=== PATIENT | male | born 1985 | race African-American/Black ===

== ENCOUNTER 2017-05-26 13:01 | Emergency (ER) | payer MEDICAID ==
[~2017-05-26] VITALS: Ht 180.3 cm; Wt 104.0 kg
[2017-05-26] MEDS ORDERED: TETANUS, DIPHTHERIA, PERTUSSIS VAC/PF 0.5ML (>7YR OLD) IM ONE (13:45)
[2017-05-26] MEDS ORDERED: BACITRACIN ZINC OINT UDPKT TOP ONE (14:45)
[2017-05-26 15:00] VITALS: BP 129/71
== END 2017-05-26 15:10 | disposition home or self-care (01) ==
LOC: ER 13:01
DX: L03.019 Cellulitis of unspecified finger (principal); Y04.1XXA Assault by human bite, initial encounter; Y93.89 Activity, other specified; Y99.8 Other external cause status; Y92.89 Other specified places as the place of occurrence of the external cause
CPT/HCPCS: 73130; 90471; 90715; 99284

== ENCOUNTER 2017-08-20 01:20 | Emergency (ER) | payer MEDICAID ==
[~2017-08-20] VITALS: Ht 180.3 cm; Wt 109.0 kg
[2017-08-20] MEDS ORDERED: HYDROCODONE/ACETAMINOPHEN 10/325MG TABLET PO ONE (02:30)
[2017-08-20] MEDS ORDERED: AMOXICILLIN/POTASSIUM CLAVULANATE 875/125MG TAB PO ONE (02:30)
[2017-08-20] MEDS ORDERED: MECLIZINE 25MG TABLET PO SCH (02:45)
[2017-08-20 03:13] VITALS: BP 124/76
== END 2017-08-20 03:14 | disposition home or self-care (01) ==
LOC: ER 01:20
DX: H93.12 Tinnitus, left ear (principal)
CPT/HCPCS: 99284; Z7610; J8597

== ENCOUNTER 2017-12-05 00:55 | Emergency (ER) | payer MEDICAID ==
[~2017-12-05] VITALS: Ht 180.3 cm; Wt 114.0 kg
[2017-12-05 01:02] VITALS: BP 126/79
== END 2017-12-05 01:22 | disposition left against medical advice (07) ==
LOC: ER 00:55
DX: Z53.21 Procedure and treatment not carried out due to patient leaving prior to being seen by health care provider (principal)

== ENCOUNTER 2018-09-08 12:15 | Emergency (ER) | payer MEDICAID ==
[~2018-09-08] VITALS: Ht 180.3 cm; Wt 139.0 kg
[2018-09-08] MEDS ORDERED: DEXAMETHASONE 10 MG/ML VIAL IM ONE (12:45)
[2018-09-08 13:22] VITALS: BP 121/68
== END 2018-09-08 13:23 | disposition home or self-care (01) ==
LOC: ER 12:41
DX: S16.1XXA Strain of muscle, fascia and tendon at neck level, initial encounter (principal); S39.012A Strain of muscle, fascia and tendon of lower back, initial encounter; Z88.6 Allergy status to analgesic agent; V49.9XXA Car occupant (driver) (passenger) injured in unspecified traffic accident, initial encounter; Y93.89 Activity, other specified; Y92.488 Other paved roadways as the place of occurrence of the external cause
CPT/HCPCS: 96372; 99283; J1100

== ENCOUNTER 2018-10-23 07:23 | Emergency (ER) | payer MEDICAID ==
[~2018-10-23] VITALS: Ht 180.3 cm; Wt 107.0 kg
[2018-10-23] MEDS ORDERED: TRAMADOL 50MG TABLET PO ONE (10:00)
[2018-10-23 10:16] VITALS: BP 126/88
== END 2018-10-23 11:19 | disposition home or self-care (01) ==
LOC: ER 07:23
DX: R05 Cough (principal); R07.89 Other chest pain; Z88.6 Allergy status to analgesic agent
CPT/HCPCS: 71045; 99283

== ENCOUNTER 2019-08-19 09:26 | Emergency (ER) | payer MEDICAID ==
[~2019-08-19] VITALS: Ht 180.3 cm; Wt 109.0 kg
[2019-08-19 10:07] VITALS: BP 142/68
[2019-08-19] MEDS ORDERED: ACETAMINOPHEN 500MG TABLET PO ONE ×2 (11:00→13:00)
[2019-08-19] MEDS ORDERED: METHYLPREDNISOLONE SOD SUCC 125 MG/2 ML VIAL IM ONE (11:00)
[2019-08-19] MEDS ORDERED: ACETAMINOPHEN 325MG TABLET PO ONE (12:45)
== END 2019-08-19 12:20 | disposition home or self-care (01) ==
LOC: ER 09:26
DX: J02.9 Acute pharyngitis, unspecified (principal); Z88.6 Allergy status to analgesic agent
CPT/HCPCS: 87070; 87430; 96372; 99283; J2930; Z7610

== ENCOUNTER 2022-08-29 17:12 | Emergency (ER) | payer MEDICAID ==
[~2022-08-29] VITALS: Ht 180.3 cm; Wt 80.0 kg
[2022-08-29 18:07] VITALS: BP 106/58
[2022-08-29] MEDS ORDERED: LIDOCAINE HCL/PF 1% 10 MG/ML 5ML VIAL INFIL ONE (22:30)
== END 2022-08-29 23:29 | disposition home or self-care (01) ==
LOC: ER 17:33
DX: M25.522 Pain in left elbow (principal); R22.32 Localized swelling, mass and lump, left upper limb; Z88.6 Allergy status to analgesic agent; W19.XXXA Unspecified fall, initial encounter; Y93.89 Activity, other specified; Y92.89 Other specified places as the place of occurrence of the external cause
CPT/HCPCS: 73080; 99283; J3490; Z7610